=== PATIENT | female | born 1995 | race Asian ===

== ENCOUNTER 2024-05-18 07:00 | Inpatient (IN) | payer BC, OTHER ==
[2024-05-18 08:53] LABS: BASO % 0.4 % (0-2.0); EOS % 0.6 % (0-4.5); HEMATOCRIT 40.9 % (32.4-45.2); LYMPH % 28.9 % (8-40); MCHC 34.3 g/dl (32.0-36.0); MEAN CELL VOLUME 75.9 fl (80-96); MEAN PLT VOLUME 10.1 fl (7.5-11.1); MONO % 5.3 % (3.8-10.2); NEUT % 64.8 % (42.8-82.8); PLATELET COUNT 123 10^3/uL (134-434); RBC 5.39 M/mm3 (3.60-5.2); RDW 16.8 % (11.6-15.6); WHITE BLOOD COUNT 5.5 K/mm3 (4.0-10.0)
[2024-05-18 08:59] LABS: INR 0.92 (0.83-1.09); PROTHROMBIN TIME (PATIENT) 10.6 SEC (9.7-13.0)
[2024-05-18 09:01] LABS: ACTIVATED PTT 26.5 SECONDS (25.2-36.5)
[2024-05-18] MEDS: ELECTROLYTE-148 SOLN 1,000 ML IV SCH (09:15)
[2024-05-18] MEDS ORDERED: OXYTOCIN 30 UNITS in 0.9% NS 30 UNIT/500 ML INFUS.BAG IVPB ONE (09:30)
[2024-05-18] MEDS: OXYTOCIN 30 UNITS in 0.9% NS 30 UNIT/500 ML INFUS.BAG IVPB SCH (09:35)
[2024-05-18] MEDS ORDERED: FENTANYL/BUPIVACAINE/NS/PF - PCEA - 50 ML DISP.SYRIN EP ONE ×4 (09:58→19:35)
[2024-05-18 10:15] LABS: POTASSIUM 4.1 mmol/L (3.5-5.1)
[2024-05-18 10:16] LABS: CALCIUM 8.8 mg/dL (8.5-10.1)
[2024-05-18 10:18] LABS: BLOOD UREA NITROGEN 7.2 mg/dL (7-18)
[2024-05-18 10:20] LABS: CREATININE 0.6 mg/dL (0.55-1.3)
[2024-05-18] MEDS ORDERED: NALOXONE HCL 0.4 MG/ML VIAL IVPUSH PRN (10:20)
[2024-05-18] MEDS ORDERED: FENTANYL CITRATE/PF 50 MCG/ML VIAL ONE (10:29)
[2024-05-18] MEDS ORDERED: BUPIVACAINE HCL/PF 0.25% (2.5MG/ML) 10 ML VIAL ONE (10:34)
[2024-05-18] MEDS: FENTANYL/BUPIVACAINE/NS/PF - PCEA - 50 ML DISP.SYRIN EP SCH (10:50)
[2024-05-18 11:45] VITALS: BMI 33.8
[2024-05-18] MEDS ORDERED: OXYTOCIN 20 UNITS in 0.9% NS 20 UNIT/1,000 ML INFUS.BAG IV ONE (20:09)
[2024-05-18] MEDS ORDERED: LIDOCAINE HCL 1% PRESERVATIVE FREE - 30ML VIAL ONE (20:09)
[2024-05-18] MEDS: CITRIC ACID/SODIUM CITRATE 30 ML UNIT-DOSE CUP PO ONE (23:20)
[2024-05-18] MEDS ORDERED: ceFAZolin SODIUM 1 GM VIAL ONE (23:39)
[2024-05-18] MEDS ORDERED: ONDANSETRON 4 MG/2 ML VIAL ONE (23:39)
[2024-05-18] MEDS ORDERED: morphine SULFATE (PF) 1 MG/2 ML SYRINGE ONE (23:39)
[2024-05-19 00:54] LABS: CORD BASE EXCESS -4.9 mmol/L (0-2); CORD HCO3 20.6 mmHg (20-29); CORD PCO2 40.1 mmHg (30-78); CORD pH 7.329 (7.14-7.44)
[2024-05-19] MEDS ORDERED: METHYLERGONOVINE MALEATE 0.2 MG/1 ML AMP IM PRN (00:56)
[2024-05-19] MEDS ORDERED: WITCH HAZEL 50% (TUCKS) 40 PAD/JAR PAD TP PRN (00:56)
[2024-05-19] MEDS ORDERED: IBUPROFEN 800 MG/8 ML IJ IVPB PRN (00:56)
[2024-05-19] MEDS ORDERED: BENZOCAINE 28 GM HEMORRHOIDAL OINTMENT TP PRN (00:56)
[2024-05-19] MEDS ORDERED: BENZOCAINE 20% 57 GM BOTTLE TP PRN (00:56)
[2024-05-19 01:17] LABS: CORD BASE EXCESS -6.5 mmol/L (0-2); CORD HCO3 17.4 mmHg (20-29); CORD PCO2 31.3 mmHg (30-78); CORD pH 7.363 (7.14-7.44)
[2024-05-19] MEDS: OXYTOCIN 20 UNITS in 0.9% NS 20 UNIT/1,000 ML INFUS.BAG IV SCH (03:05)
[2024-05-19 03:23] VITALS: RESP 18
[2024-05-19] MEDS: FLU VACCINE (FLULAVAL) PF 45 MCG/0.5 ML SYRINGE 2024-2025 IM ONE (11:38)
[2024-05-19] MEDS: PRENATAL VITAMINS W/ FOLIC ACID TABLET (FP) PO SCH (11:38)
[2024-05-19] MEDS ORDERED: oxyCODONE HCL 5 MG TABLET PO PRN ×2 (12:56)
[2024-05-19] MEDS: IBUPROFEN 600 MG TABLET (FP) PO PRN (16:45)
[2024-05-19] MEDS: SIMETHICONE 80 MG TAB.CHEW (FP) PO PRN (16:45)
[2024-05-20] MEDS ORDERED: BISACODYL 10 MG SUPP.RECT RC PRN (00:56)
[2024-05-20 07:54] LABS: BASO % 0.5 % (0-2.0); EOS % 0.8 % (0-4.5); HEMATOCRIT 36.6 % (32.4-45.2); LYMPH % 16.8 % (8-40); MCH 25.3 pg (25.7-33.7); MCHC 32.7 g/dl (32.0-36.0); MEAN CELL VOLUME 77.4 fl (80-96); MEAN PLT VOLUME 9.7 fl (7.5-11.1); MONO % 4.9 % (3.8-10.2); PLATELET COUNT 133 10^3/uL (134-434); RBC 4.73 M/mm3 (3.60-5.2); RDW 16.6 % (11.6-15.6); WHITE BLOOD COUNT 11.1 K/mm3 (4.0-10.0)
[2024-05-20] MEDS: ENOXAPARIN NA (PORCINE) 40 MG/0.4 ML DISP.SYRIN SQ SCH (09:45)
[2024-05-20] MEDS: ACETAMINOPHEN 325 MG TABLET (FP) PO PRN (12:08)
[2024-05-20] MEDS: SENNOSIDES/DOCUSATE COMBO (SENNA PLUS) TABLET (UD) PO PRN (19:41)
[2024-05-20 23:00] VITALS: PULSE 78; TEMP 97.8
[2024-05-21 10:39] VITALS: BP 115/74
== END 2024-05-21 14:12 | disposition home or self-care (01) | DRG 788 ==
LOC: JLDR 07:00 → J3W 05-19 04:05
PROVIDERS: ADMIT Obstetrics & Gynecology; ATTEND Obstetrics & Gynecology
PROC: 3E0P7VZ Introduction of Hormone into Female Reproductive, Via Natural or Artificial Opening (ICD-10-PCS; 2024-05-18)
PROC: 10D00Z1 Extraction of Products of Conception, Low, Open Approach (ICD-10-PCS; principal; 2024-05-19)
DX: O62.1 Secondary uterine inertia (principal); O99.213 Obesity complicating pregnancy, third trimester; Z3A.39 39 weeks gestation of pregnancy; Z37.0 Single live birth
CPT/HCPCS: 36415; 36600; 80048; 82803; 85025; 85610; 85730; 86780; 86850; 86900; 86901; 88307-TC; 90656; 94010; G0008